=== PATIENT | female | born 1980 | race African-American/Black ===

== ENCOUNTER 2017-01-28 09:33 | Emergency (ER) | payer SELFPAY ==
[~2017-01-28] VITALS: Ht 162.6 cm; Wt 72.0 kg
[~2017-01-28 09:33] MED LIST: Z.0.NO CURRENT MEDS
[2017-01-28 09:35] VITALS: BP 118/65; PULSE 72; RESP 14; TEMP 98; O2SAT 98
--- NOTE | 2017-01-28 09:56 | PD ---
HPI Chief Complaint: ENT Complaint Time Seen by Provider: 09:45 Travel History International Travel<30 days: No Contact w/Intl Traveler<30days: No Traveled to known affect area: No History of Present Illness HPI 36-year-old female presents to emergency Department with complaint of a foreign body in her left ear since this morning. Thinks her fingernail is in her ear. She said her fingernails missing and she tried looking for it in her bed and couldn't find it but remembers scratching her ear and thinking it might be stuck in there. Denies ear pain. Denies ear drainage. Denies change in hearing. Has tried flushing the ear. Says she can hear some crackling sounds in her ear. No known aggravating or relieving factors. No known allergies. Has no other medical complaints. No other modifying factors or associated signs and symptoms. PFSH Past Medical History Diminished Hearing: No Past Surgical History Gynecologic Surgery: Yes (C/SECTION X 1) Social History Alcohol Use: No Tobacco Use: No Allergies-Medications (Allergen,Severity, Reaction): Coded Allergies: No Known Allergies (Verified , 08/27/13) Reported Meds & Prescriptions Reported Meds & Active Scripts Active Reported No Current Meds (Miscellaneous Medication) Misc Review of Systems Except as stated in HPI: all other systems reviewed are Neg Physical Exam Narrative GENERAL: Well-nourished, well-developed black female patient, in no acute distress SKIN: Warm and dry. HEAD: Atraumatic. Normocephalic. EYES: Pupils equal and round. No scleral icterus. No injection or drainage. ENT: Mucosa pink and moist. Airway patent. EARS: Bilateral pinnae and external canals appear within normal limits. Left ear canal with noted foreign body. Bilateral tympanic membranes without erythema, dullness or perforation. NECK: Trachea midline. CARDIOVASCULAR: Regular rate. RESPIRATORY: No accessory muscle use. GASTROINTESTINAL: Flat. MUSCULOSKELETAL: No obvious deformities. No clubbing. No cyanosis. No edema. NEUROLOGICAL: Awake and alert. Oriented 3. No obvious cranial nerve deficits. Motor grossly within normal limits. Normal speech. PSYCHIATRIC: Appropriate mood and affect; insight and judgment normal. Data Data Last Documented VS Vital Signs Date Time Temp Pulse Resp B/P (MAP) Pulse Ox O2 Delivery O2 Flow Rate FiO2 01/28/17 09:35 98.0 72 14 118/65 (82) 98 Orders Orders Ed Discharge Order (01/28/17 09:56) [facility] Medical Decision Making Medical Screen Exam Complete: Yes Emergency Medical Condition: Yes Medical Record Reviewed: Yes Differential Diagnosis Ear foreign body, cerumen impaction, medical clearance Narrative Course 36-year-old female physical exam consistent with a foreign body in the left ear. See my procedure note for foreign body removal. Instructed patient to follow up with primary care provider. Patient verbalizes understanding and agreement with treatment plan. Patient is medically cleared and stable for discharge. Discussed reasons to return to the emergency department. Patient agrees with treatment plan. The patients vital signs are stable and the patient is stable for outpatient follow-up and treatment. Patient discharged home, stable and in no acute distress. Procedures Procedure Narrative Ear foreign body removal: The left ear was flushed with normal saline x 2. The foreign body was successfully removed using an ear curette. Patient tolerated well. Diagnosis Primary Impression: Foreign body in left ear Qualified Codes: T16.2XXA - Foreign body in left ear, initial encounter Referrals: Primary Care Physician Patient Instructions: Ear Foreign Body (ED), General Instructions Additional Instructions: Follow-up with primary care provider Return to the emergency department immediately with worsening of symptoms Disposition: 01 DISCHARGE HOME Condition: Stable Nicole Bergeron Jan 28, 2017 09:56
== END 2017-01-28 11:01 | disposition home or self-care (01) ==
LOC: NEPD 09:33
DX: T16.2XXA Foreign body in left ear, initial encounter (principal)
CPT/HCPCS: 69200; 69210